=== PATIENT | male | born 1955 | race Caucasian/White ===

== ENCOUNTER 2020-01-06 04:30 | Outpatient (CLI) | payer MEDICAID, SELFPAY ==
[2020-01-06 10:25] LABS: Bilirubin Negative (Negative); Blood Trace-lysed (Negative); Clarity Clear (Clear); Glucose Negative (Negative); Ketones Negative (Negative); Leukocyte Esterase Negative (Negative); Nitrite Negative (Negative); Specific Gravity >= 1.030 (1.005-1.025); Urobilinogen 0.2 EU/dL (Up TO 0.2)
[2020-01-06 10:35] LABS: RBC 0-2 HPF (0-2); WBC 0-2 HPF (0-5)
[2020-01-06 10:36] LABS: Bacteria Negative HPF (Negative); C & S Indicated? No; Casts Negative LPF (Negative); Crystals Negative HPF (Negative); Epithelial Cells Rare HPF (Negative); Mucus Trace (Negative)
== END 2020-01-06 04:50 ==
PROVIDERS: PCP Physician Assistant; Visit Provider Radiology Radiation Oncology
DX: C61 Malignant neoplasm of prostate (principal); R30.0 Dysuria
CPT/HCPCS: 81003; 81015

== ENCOUNTER 2020-11-29 01:05 | Outpatient (CLI) | payer MEDICAID, SELFPAY ==
--- NOTE | 2020-11-29 | DI.MRI_ITS ---
Exam(s) MR CERVICAL SPINE WO EXAM: MR CERVICAL SPINE WO CLINICAL HISTORY: WEAKNESS RT ARM, G83.21, ? TIA TECHNIQUE: Multiplanar multisequence MRI of the cervical spine was performed without intravenous con trast. COMPARISON: There are no plain films available time this MRI interpretation. FINDINGS: CERVICOMEDULLARY JUNCTION: Intact with no evidence of cerebellar tonsillar ectopia. No obvious abnor mality of the odontoid process. No evidence of Chiari 1 malformation. CERVICAL SPINAL CORD: There is no abnormal signal in the cervical spinal cord and no evidence of foca l cord atrophy nor focal cord swelling. OSSEOUS:There are no cervical fractures evident. No significant osseous lesions in the cervical vert ebrae. Modic type 2 sub endplate fatty marrow changes at C4-5 level. INDIVIDUAL LEVELS: C2-3: No disc herniation nor central canal stenosis. No foraminal stenosis. No facet arthropathy. C3-4: No disc herniation nor central canal stenosis.No facet arthropathy. No foraminal stenosis. C4-5: This level exhibits moderate decreased disc height. Modic type 2 sub endplate fatty marrow rohini nges. There is moderate central spinal canal stenosis. Broad annular bulging. Small bilateral disc -Luschka joint osteophyte complexes seen bilaterally.. The annular bulging flattens the cervical cor d. AP dimension the canal at this level 7 millimeters.Only mild facet arthropathy mild foraminal chino nosis bilaterally. C5-6: Normal disc height and signal. No disc herniation. No central canal stenosis. No significant foraminal stenosis. No prominent facet arthropathy. C6-7: Relatively preserved disc height. Central-slightly left of center disc herniation which extend s posteriorly 3-4 millimeters and is approximately 9 millimeters wide. This indents the thecal sac a nd contacts the cord. Mild central canal stenosis. There is no significant facet arthropathy and th ere is no significant foraminal stenosis at this level C7-T1: No disc herniation nor central canal stenosis. No facet arthropathy.No foraminal stenosis. IMPRESSION: 1. Findings as described above at C4-5 and C6-7 levels. 2. There is a central-slightly left of center disc protrusion at C6-7 levels which indents the thecal sac contacts the cervical cord, resulting in mild central canal stenosis. No abnormal signal seen i n the cord at this level. There is minimal facet arthropathy and there is no significant foraminal s tenosis evident at this level. 3. At C4-5 level there is an element of significant moderate spinal canal stenosis which is related t o broad annular bulging and bilateral disc-Luschka joint osteophytes bilaterally. Minimal-mild alexia inal stenosis at this level. There is slight increased signal within the cervical cord seen just bel ow this level at C5 level there is no focal cord swelling nor focal cord atrophy. There is no syrinx . DATA REPOSITORY:
--- NOTE | 2020-11-29 | DI.MRI_ITS ---
Exam(s) MR BRAIN WO EXAM: MR BRAIN WO CLINICAL HISTORY: WEAKNESS RT ARM,G83.21,? TIA TECHNIQUE: Multiplanar multisequence MRI of the brain was performed. COMPARISON: No exams were available for comparison FINDINGS: CEREBRAL PARENCHYMA: There is no evidence of intracranial hemorrhage, mass effect, or shift of midline structures. There are no extra-axial fluid collections. Ventricles are not enlarged or shifted. There is no significant focal signal abnormality in the cerebellar hemispheres nor within the andrew, m idbrain, and thalami. There are few small foci of signal abnormality posteriorly on the right side around the atrium of the right lateral ventricle and 2 small 2 millimeter foci of signal abnormality near the frontal horn of the left lateral ventricle. These are not associated with hemorrhage or surrounding edema nor abnor mal signal on diffusion imaging to suggest acute ischemic events. PITUITARY GLAND: No mass nor parasellar abnormality. No obvious abnormality in the cavernous sinuses. FLOW VOIDS: The expected flow void are noted. No evidence of obvious aneurysm nor obvious vascular ma lformation. 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 PARANASAL SINUSES: The visualized paranasal sinuses appear unremarkable. No obvious finding ORBITS: No obvious findings. IMPRESSION: Mild nonspecific white matter findings as described above. If clinically indicated MRI can be repeat ed in 6 months to ensure stability. DATA REPOSITORY:
== END 2020-11-29 01:25 ==
PROVIDERS: PCP Physician Assistant; Visit Provider Nurse Practitioner Family
DX: M50.223 Other cervical disc displacement at C6-C7 level (principal); M48.02 Spinal stenosis, cervical region; M47.812 Spondylosis without myelopathy or radiculopathy, cervical region; M50.221 Other cervical disc displacement at C4-C5 level; M25.78 Osteophyte, vertebrae; R53.1 Weakness
CPT/HCPCS: 70551; 72141

== ENCOUNTER 2021-09-15 09:44 | Outpatient (CLI) | payer MEDICARE, MEDICAID, SELFPAY | END 2021-09-15 09:45 | disposition home or self-care (01) | LOC: DI.CARD 09:45 | PROVIDERS: PCP Physician Assistant; Visit Provider Internal Medicine Cardiovascular Disease | DX: R69 Illness, unspecified (principal) | CPT/HCPCS: 93010 ==

== ENCOUNTER 2024-02-01 00:43 | Outpatient (CLI) | payer MEDICARE, SELFPAY ==
--- NOTE | 2024-02-01 | DI.MRI_ITS ---
Exam(s) MR UPPER EXTREMITY RT WO/W EXAM: MR UPPER EXTREMITY RT WO/W CLINICAL HISTORY: LOCAL INFECTION SKIN/SUBCUTANEOUS TISSUE, L08.9. TECHNIQUE: Multiplanar multisequence MRI was performed. CONTRAST MATERIAL: IV Contrast: 2 select he cm 8 point is mL of Dotarem contrast administered. COMPARISON: Plain films 22 November 2023 FINDINGS: Bones: Significant erosion and resorption of the distal phalanx. Borders appear smooth. No marrow e marty. Joints: No abnormality of the joints. Tendons: No tendon abnormality. Soft tissues: Rounded lesion at the dorsal aspect of the distal phalanx measuring 2.4 by 2 by 2.3 cm. The signal characteristics are low to intermediate signal on T1 and high signal on T2. No evidence of enhancement. The findings may represent an epidermal inclusion cyst. IMPRESSION: Large cystic-appearing lesion at the distal phalanx of the middle finger with significant bone loss. The findings have a benign appearance and may represent an epidermal inclusion cyst. DATA REPOSITORY:
--- NOTE | 2024-02-01 | DI.MRI_ITS ---
Exam(s) MR BRAIN WO EXAM: MR BRAIN WO CLINICAL HISTORY: AMNESIA, R41.3 TECHNIQUE: Multiplanar multisequence MRI of the brain was performed. COMPARISON: MR MR BRAIN WO from 11/29/2020 FINDINGS: VENTRICLES AND EXTRA AXIAL SPACES: Normal in size and morphology for the patient's age. MIDLINE SHIFT: None. CEREBRAL PARENCHYMA: No focus of restricted diffusion to suggest acute infarct. No space-occupying le leia identified. Moderate atrophy, somewhat disproportionate for the patient's age. Mild scattered f oci of high signal in the white matter consistent with sequela of chronic microvascular disease mild progression from prior.. BRAINSTEM/CEREBELLUM: Normal. VISUALIZED PARANASAL SINUSES: Clear. MASTOIDS:Clear. Vasculature: Normal flow void. Basilar artery is again noted to be ectatic. PITUITARY GLAND: Unremarkable. ORBITS: Unremarkable. IMPRESSION: Moderate atrophy. Mild white matter changes of microvascular disease. No acute abnormality. DATA REPOSITORY:
[2024-02-01] MEDS: Normal Saline Flush 10 ML SYR IVP (13:11)
[2024-02-01] MEDS: Gadoterate meglumine 20 ML SYRINGE IVP (13:12)
== END 2024-02-01 01:03 ==
PROVIDERS: PCP Physician Assistant; Visit Provider Registered Nurse
DX: L72.0 Epidermal cyst (principal); I25.85 Chronic coronary microvascular dysfunction
CPT/HCPCS: 70551; 73220